=== PATIENT | female | born 1935 | race Two or more races ===

== ENCOUNTER 2022-06-14 11:58 | Emergency (ER) | payer OTHER ==
[~2022-06-14] VITALS: Ht 165.1 cm; Wt 68.0 kg
[2022-06-14] MEDS ORDERED: IRBESARTAN-HCT1 EACH PO (12:23)
[2022-06-14] MEDS ORDERED: SIMVASTATIN40 MG PO (12:23)
[2022-06-14] MEDS ORDERED: AMLODIPINE BESYL5 MG PO (12:23)
== END 2022-06-14 14:13 | disposition home or self-care (01) ==
LOC: ER 11:58
DX: I10 Essential (primary) hypertension (principal); E78.00 Pure hypercholesterolemia, unspecified

== ENCOUNTER 2023-01-19 15:15 | Emergency (ER) | payer OTHER ==
[~2023-01-19] VITALS: Ht 162.6 cm; Wt 68.0 kg
[~2023-01-19 15:15] MED LIST: AMLODIPINE BESYL5 MG PO; IRBESARTAN-HCT1 EACH PO; SIMVASTATIN40 MG PO
[2023-01-19] MEDS ORDERED: VERELAN PM100 MG PO (15:29)
[2023-01-19] MEDS ORDERED: BACTRIM DS TAB1 EACH PO ×2 (21:02→21:03)
== END 2023-01-19 21:07 | disposition home or self-care (01) ==
LOC: ER 15:15
DX: N39.0 Urinary tract infection, site not specified (principal); R10.30 Lower abdominal pain, unspecified

== ENCOUNTER 2023-10-09 10:41 | Emergency (ER) | payer OTHER ==
[~2023-10-09] VITALS: Ht 165.1 cm; Wt 68.0 kg
[~2023-10-09 10:41] MED LIST changes: +BACTRIM DS TAB1 EACH PO; +VERELAN PM100 MG PO
[2023-10-09 12:46] LABS: HEMATOCRIT 42.9 % (36.0-45.00); HEMOGLOBIN 14.6 g/dL (12.0-15.00); MEAN CELL VOLUME 90.3 fL (80.00-100.00); MEAN CORPUSCULAR HEMOGLOBIN 30.7 pg (27.00-32.0); PLATELET COUNT 288 K/uL (150-450); RED BLOOD COUNT 4.75 M/uL (4.00-6.00); RED CELL DISTRIBUTION WIDTH 13.6 % (11.5-14.5)
[2023-10-09 13:13] LABS: CALCIUM 10.1 mg/dL (8.5-10.1); CREATININE SERUM 0.84 mg/dL (0.55-1.02); GFR 64.29; POTASSIUM 3.76 mEq/L (3.5-5.1)
[2023-10-09] MEDS ORDERED: TUSNEL LIQUID178 ML PO (13:40)
[2023-10-09] MEDS ORDERED: PAXLOVID 300-11 EAC1 PO (13:40)
[2023-10-09] MEDS ORDERED: PROAIR RESPICL90 MCG IH (13:40)
== END 2023-10-09 13:45 | disposition home or self-care (01) ==
LOC: ER 10:41
PROVIDERS: General Practice
DX: U07.1 COVID-19 (principal); E11.9 Type 2 diabetes mellitus without complications; I10 Essential (primary) hypertension
CPT/HCPCS: 36415; 96372; 99284; J1100; J1885